=== PATIENT | female | born 1985 | race Caucasian/White ===

== ENCOUNTER 2022-01-13 11:08 | Inpatient (IN) | payer BC ==
[~2022-01-13 11:08] MED LIST: Bupivacaine 0.25% HCL 30 ML VIAL ONE
[2022-01-13 11:54] VITALS: BMI 27.1
[2022-01-13] MEDS ORDERED: Butorphanol Tartrate 1 MG/ML VIAL SLOW IVP PRN (12:02)
[2022-01-13] MEDS ORDERED: Ibuprofen 800 MG TAB PO PRN (12:02)
[2022-01-13] MEDS ORDERED: hydrALAZINE 20 MG/ML VIAL SLOW IVP PRN ×2 (12:02→23:43)
[2022-01-13] MEDS ORDERED: HYDROcodone/Acetaminophen 5/325 mg Tablet PO PRN ×4 (12:02→23:43)
[2022-01-13] MEDS ORDERED: Lidocaine 1% (PF) 30 ML VIAL SC PRN (12:02)
[2022-01-13] MEDS ORDERED: Ondansetron PF 4 MG/2 ML Vial IVP PRN ×3 (12:02→23:43)
[2022-01-13] MEDS ORDERED: Misoprostol 200 MCG TAB PR PRN (12:02)
[2022-01-13] MEDS ORDERED: Promethazine HCl 25 MG/ML VIAL IM PRN ×2 (12:02→16:07)
[2022-01-13] MEDS ORDERED: NS w/ Oxytocin 30 units 500 ML IV SCH ×3 (12:15→23:59)
[2022-01-13 12:29] LABS: Hemoglobin 13.2 g/dL (12.0-15.5); Mean Corpuscular HGB CONC 34.5 g/dL (32.0-36.0); Mean Corpuscular Hemoglobin 31.4 pg (27.0-33.0); Mean Corpuscular Volume 91.2 fl (81.6-98.3); Mean Platelet Volume 9.6 fl (7.4-10.4); Platelet Count 161 10x3/uL (150-450); RBC Distribution Width 12.7 % (11.5-14.5); White Blood Cell (WBC) Count 10.5 10x3/uL (3.5-10.5)
[2022-01-13 13:00] LABS: HBSAg Index 0.19 S/CO (0-0.99); Hep B Surf Ag Non-Reactive S/CO (NonReactive)
[2022-01-13 13:01] LABS: Syphilis Antibody Nonreactive (Nonreactive); Syphilis Antibody Index 0.03 S/CO (<1.00 Non-Reactive)
[2022-01-13] MEDS ORDERED: Fentanyl 2 mcg/Bup 0.1% Cadd 100 ML ONE (13:06)
[2022-01-13] MEDS: Lactated Ringer's 1,000 ML IV SCH ×2 (14:00→17:23)
[2022-01-13 14:48] LABS: SARS-CoV-2 NAA Rapid Test Not Detected (NotDetected)
[2022-01-13] MEDS ORDERED: Moisturizing Cream (Eucerin) 113 GM JAR TOP PRN (16:07)
[2022-01-13] MEDS ORDERED: diphenhydrAMINE 50 MG/ML VIAL IVP PRN (16:07)
[2022-01-13] MEDS ORDERED: Naloxone HCl 0.4 mg/ml Vial IVP PRN ×2 (16:07)
[2022-01-13] MEDS ORDERED: Acetaminophen 325 MG TAB PO PRN (16:07)
[2022-01-13] MEDS ORDERED: ePHEDrine Sulfate 50 MG/10 ML VIAL SLOW IVP PRN (16:07)
[2022-01-13] MEDS ORDERED: Fentanyl 2 mcg/Bupivacaine 0.1% Cassette 100 ML EPIDURAL SCH (16:15)
[2022-01-13] MEDS ORDERED: Communication Order-Pharmacy FS SCH (16:15)
[2022-01-13] MEDS ORDERED: Lactated Ringer's 500 ML IV PRN (16:43)
[2022-01-13] MEDS ORDERED: Bisacodyl 10 MG SUPP PR PRN (23:43)
[2022-01-13] MEDS ORDERED: Milk Of Magnesia 30 ML UDCUP PO PRN (23:43)
[2022-01-13] MEDS ORDERED: Misoprostol 200 MCG TAB VAG PRN (23:43)
[2022-01-13] MEDS ORDERED: Methylergonovine 0.2 MG/ML VIAL IM PRN (23:43)
[2022-01-13] MEDS ORDERED: Lanolin Ointment 7 GM TUBE TOP PRN (23:43)
[2022-01-13] MEDS ORDERED: Boostrix 0.5 ML (Tdap) VIAL (>/=7 yrs of age) IM ONE (23:43)
[2022-01-13] MEDS ORDERED: Benzocaine-Menthol 82.5 ML CAN TOP PRN (23:43)
[2022-01-13] MEDS ORDERED: Docusate 100 MG CAP PO SCH (23:45)
[2022-01-14] MEDS: Ibuprofen 800 MG TAB PO SCH ×4 (00:35→23:45)
[2022-01-14] MEDS: Ferrous Sulfate 325 MG TAB PO SCH ×2 (07:42→17:26)
[2022-01-14] MEDS: Docusate 100 MG CAP PO SCH ×2 (08:36→20:53)
[2022-01-14] MEDS: Prenatal Vitamin 1 TAB PO SCH (08:36)
[2022-01-15 00:50] VITALS: BP 121/68; TEMP 98.1
[2022-01-15] MEDS: Ferrous Sulfate 325 MG TAB PO SCH (08:47)
[2022-01-15] MEDS: Ibuprofen 800 MG TAB PO SCH (08:47)
[2022-01-15] MEDS: Prenatal Vitamin 1 TAB PO SCH (08:48)
[2022-01-15] MEDS: Docusate 100 MG CAP PO SCH (08:48)
== END 2022-01-15 15:05 | disposition home or self-care (01) | DRG 807 ==
LOC: CSHLD/OP 11:08 → CSHLD 11:41 → CSHPP 22:50
PROVIDERS: ADMIT Obstetrics & Gynecology; ATTEND Obstetrics & Gynecology
PROC: 10E0XZZ Delivery of Products of Conception, External Approach (ICD-10-PCS; principal; 2022-01-13)
PROC: 0HQ9XZZ Repair Perineum Skin, External Approach (ICD-10-PCS; 2022-01-13)
PROC: 3E0334Z Introduction of Serum, Toxoid and Vaccine into Peripheral Vein, Percutaneous Approach (ICD-10-PCS; 2022-01-14)
DX: O42.02 Full-term premature rupture of membranes, onset of labor within 24 hours of rupture (principal); Z37.0 Single live birth; Z20.822 Contact with and (suspected) exposure to COVID-19; O26.893 Other specified pregnancy related conditions, third trimester; Z67.21 Type B blood, Rh negative; Z3A.40 40 weeks gestation of pregnancy; O34.211 Maternal care for low transverse scar from previous cesarean delivery; O70.0 First degree perineal laceration during delivery
CPT/HCPCS: 36415; 51702; 85027; 85461; 86780; 86850; 86870; 86900; 86901; 87340; 90384; 96372; 99285; J2405; J7120; S0020; U0002